=== PATIENT | male | born 1985 | race Caucasian/White ===

== ENCOUNTER 2017-03-17 14:22 | Emergency (ER) | payer MEDICAID ==
[~2017-03-17] VITALS: Wt 145.1 kg
[~2017-03-17 14:22] MED LIST: ANAFRANIL50 MG PO; BENZOYL PEROXIDE TP; CLINDAMYCIN TP; LAMICTAL150 MG PO; LAMICTAL200 MG PO; LORATADINE10 M1 PO; POLYETHYLENE GL1 POW; TOPAMAX200 MG PO; VITAMIN D400 I1 PO
[2017-03-17] MEDS ORDERED: AMMONIUM LACTATE121 T (14:24)
[2017-03-17] MEDS ORDERED: TOPIRAMATE100 M2 PO (14:24)
[2017-03-17] MEDS ORDERED: CICLOPIROX0.771 T (14:25)
[2017-03-17 15:09] LABS: BASO # 0.1 10*3/uL (0.0-0.1); BASO % 0.8 % (0.0-1.0); EOS # 0.2 10*3/uL (0.0-0.4); EOS % 2.1 % (1.0-4.0); HEMOGLOBIN 16.4 g/dl (14.0-18.0); IG # 0.1 10*3/uL (0.0-0.1); LYMPH # 1.6 10*3/uL (1.3-4.4); LYMPH % 22.4 % (27.0-41.0); MEAN CELL VOLUME 90.7 fl (80.0-94.0); MEAN CORPUSCULAR HGB CONC 34.2 g/dl (33.0-37.0); MEAN PLATELET VOLUME 8.7 fl (9.6-12.3); MONO # 0.5 10*3/uL (0.1-1.0); MONO % 6.7 % (3.0-9.0); NEUT # 4.8 10*3/uL (2.3-7.9); NEUT % 67.3 % (47.0-73.0); PLATELET COUNT AUTOMATED 156 10*3/uL (130-400); RED BLOOD COUNT 5.29 10*6/uL (4.50-5.90); RED CELL DISTRI WIDTH 12.8 % (0-14.5); WHITE BLOOD COUNT 7.2 10*3/uL (4.8-10.8)
[2017-03-17 15:17] LABS: PROTHROMBIN TIME 10.4 SECONDS (9.0-12.4)
[2017-03-17 15:25] LABS: ALBUMIN 4.3 gm/dl (3.1-4.5); ALKALINE PHOSPHATASE 73 U/L (45-117); BILIRUBIN, TOTAL 0.5 mg/dl (0.2-1.0); BUN 20 mg/dl (7-24); C-REACTIVE PROTEIN < 0.29 MG/DL (0-0.3); CARBON DIOXIDE 23 mmol/L (21-32); CHLORIDE 111 mmol/L (98-107); CKMB < 0.5 ng/ml (0.5-3.6); CPK 76 U/L (39-308); EST GLOM FILT AFRICAN AMERICAN > 60 ml/min; MAGNESIUM 2.8 mg/dL (1.5-2.1); POTASSIUM 4.6 mmol/L (3.5-5.1); SGOT/AST 24 IU/L (3-35); SGPT/ALT 34 U/L (12-78); SODIUM 141 mmol/L (136-145); TOTAL PROTEIN 7.9 gm/dL (6.4-8.2); TROPONIN I < 0.015 ng/ml (<0.045)
[2017-03-17 15:26] LABS: GLUCOSE 98 mg/dL (65-99)
[2017-03-17] MEDS ORDERED: PROTONIX40 MG PO (16:21)
== END 2017-03-17 16:35 | disposition home or self-care (01) ==
LOC: ED 14:22
PROVIDERS: Emergency Medicine
DX: K29.00 Acute gastritis without bleeding (principal); Z79.899 Other long term (current) drug therapy

== ENCOUNTER 2018-07-21 13:20 | Emergency (ER) | payer MEDICAID ==
[~2018-07-21 13:20] MED LIST changes: +AMMONIUM LACTATE121 T; +CICLOPIROX0.771 T; +PROTONIX40 MG PO; +TOPIRAMATE100 M2 PO
[2018-07-22 16:08] LABS: TOPAMAX (TOPIRAMATE) 11.9 ug/mL (2.0-25.0)
== END 2018-07-21 15:15 | disposition home or self-care (01) ==
LOC: ED 13:20
PROVIDERS: Emergency Medicine
DX: S01.512A Laceration without foreign body of oral cavity, initial encounter (principal); G40.909 Epilepsy, unspecified, not intractable, without status epilepticus; Z79.899 Other long term (current) drug therapy; X58.XXXA Exposure to other specified factors, initial encounter; Y93.89 Activity, other specified; Y92.89 Other specified places as the place of occurrence of the external cause; Y99.8 Other external cause status